=== PATIENT | male | born 1995 | race Asian ===

== ENCOUNTER 2019-12-02 00:12 | Emergency (ER) | payer BC ==
[~2019-12-02] VITALS: Ht 182.9 cm; Wt 93.9 kg
[2019-12-02 00:16] VITALS: Ht 182.9 cm; Wt 93.9 kg
[2019-12-02 02:00] LABS: BASOPHIL % 2.4 % (0-2); PLATELET COUNT 218 x10^3mcL (130-400); RED CELL DISTRIBUTION WIDTH 11.6 % (11.5-14.5)
[2019-12-02 02:07] LABS: CALCIUM 8.5 mg/dL (8.5-10.1); CARBON DIOXIDE 29.4 mmol/L (21-32); CHLORIDE SERUM 100 mmol/L (98-107); CREATININE SERUM 1.3 mg/dL (0.7-1.3); GFR1 > 60 mL/min; GLUCOSE SERUM 125 mg/dL (74-106); POTASSIUM SERUM 3.4 mmol/L (3.5-5.1); SODIUM SERUM 137 mmol/L (136-145)
[2019-12-02 02:20] LABS: ALBUMIN 3.9 g/dL (3.4-5.0); ALKALINE PHOSPHATASE 62 U/L (46-116); ALT/SGPT 82 U/L (16-63); AST/SGOT 31 U/L (15-37); BILIRUBIN TOTAL 0.95 mg/dL (0.20-1.00); LIPASE 188 IU/L (73-393); TOTAL PROTEIN, SERUM 7.8 g/dL (6.4-8.2)
[2019-12-02 03:32] VITALS: BP 153/80
== END 2019-12-02 03:32 | disposition home or self-care (01) ==
LOC: ED 00:12
PROVIDERS: Emergency Medicine
DX: R10.11 Right upper quadrant pain (principal); R11.0 Nausea; Z88.2 Allergy status to sulfonamides
CPT/HCPCS: J1885; J3490; Q0092